=== PATIENT | male | born 1955 | race Caucasian/White ===

== ENCOUNTER → 2018-11-10 | Outpatient (CLI) | payer BC ==
[2018-11-10 11:14] LABS: HCT 41.5 % (39.0-53.0); HGB 13.9 gm/dL (13.0-17.5); MCH 27.1 pg (25.0-35.0); MCHC 33.5 g/dL (31.0-37.0); MCV 80.9 fL (80.0-100.0); Mean Platelet Volume 7.5; Platelet Count 161 k/uL (150-450); RBC 5.13 m/uL (4.30-5.90); RDW 13.7 % (11.5-15.5); WBC 6.6 k/uL (3.8-10.6)
[2018-11-10 17:17] LABS: Albumin 3.8 g/dL (3.80-4.90); Albumin/Globulin Ratio 2.11 (1.60-3.17); Anion Gap 7.7 mmol/L (4.00-12.00); Calcium 8.6 mg/dL (8.7-10.3); Carbon Dioxide 24.3 mmol/L (21.6-31.8); Globulin 1.8 g/dL (1.6-3.3); LDL Cholesterol,Calculated 86.2 mg/dL (0.0-131.0); Potassium 4.1 mmol/L (3.5-5.5); Total Bilirubin 0.6 mg/dL (0.2-1.2); Total Protein 5.6 g/dL (6.2-8.2); VLDL Calculation 18.8 mg/dL (5.00-40.00)
== END | disposition home or self-care (01) ==
LOC: LABWHC1 10:37
PROVIDERS: ATTEND Internal Medicine Interventional Cardiology
DX: R00.0 Tachycardia, unspecified (principal); R07.89 Other chest pain
CPT/HCPCS: 36415; 80053; 80061; 84443; 85027

== ENCOUNTER 2023-03-30 21:48 | Emergency (ER) | payer MEDICARE ==
[2023-03-30 22:16] VITALS: BP 165/72; PULSE 91; RESP 18; TEMP 98.2
[2023-03-30] MEDS ORDERED: PROPARACAINE 0.5% OPHTH DROPS 15 ML BTL ONE (23:36)
== END 2023-03-31 00:09 | disposition home or self-care (01) ==
LOC: EC 21:48
DX: S05.10XA Contusion of eyeball and orbital tissues, unspecified eye, initial encounter (principal); X58.XXXA Exposure to other specified factors, initial encounter
CPT/HCPCS: 99283